=== PATIENT | male | born 1960 | race Caucasian/White ===

== ENCOUNTER 2019-01-03 08:54 | Emergency (ER) | payer BC ==
[2019-01-03] MEDS ORDERED: METOCLOPRAMIDE HCL INJ/PF 10 MG/2 ML SDV IV ONE (09:57)
[2019-01-03] MEDS ORDERED: KETOROLAC TROMETHAMINE INJ/PF 30 MG/1 ML SDV IV ONE (09:57)
[2019-01-03] MEDS ORDERED: NORMAL SALINE 1000 ML 1,000 ML IV ONE (09:58)
[2019-01-03 11:13] LABS: ABSOLUTE LYMPHOCYTES (AUTO) 1.1 10^3/uL (0.5-4.7); ABSOLUTE MONOCYTES (AUTO) 0.7 10^3/uL (0.1-1.4); ABSOLUTE NEUT (AUTO) 9.8 10^3/uL (1.7-8.2); BASOPHILS % (AUTO) 0.1 % (0-2); EOSINOPHILS % (AUTO) 0.4 % (0-6); HEMATOCRIT 44.7 % (37.9-51.0); HEMOGLOBIN 15.3 g/dL (13.5-17.0); LYMPHOCYTES % (AUTO) 9.7 % (13-45); MEAN CORPUSCULAR HGB CONC 34.3 g/dL (32.0-36.0); MEAN CORPUSCULAR VOLUME 87 fl (80-97); MONOCYTES % (AUTO) 5.7 % (3-13); PLATELET COUNT 283 10^3/uL (150-450); RED BLOOD COUNT 5.12 10^6/uL (4.35-5.55); SEGMENTED NEUTROPHILS % (AUTO) 84.1 % (42-78); TOTAL CELLS COUNTED % (AUTO) 100 %; WHITE BLOOD COUNT 11.7 10^3/uL (4.0-10.5)
[2019-01-03 11:34] LABS: ALANINE AMINOTRANSFERASE 32 U/L (21-72); ALBUMIN 4.1 g/dL (3.5-5.0); ALKALINE PHOSPHATASE 69 U/L (38-126); ANION GAP 9 (5-19); ASPARTATE AMINO TRANSFERASE 15 U/L (17-59); BILIRUBIN,DIRECT 0.1 mg/dL (0.0-0.4); BILIRUBIN,TOTAL 0.5 mg/dL (0.2-1.3); BLOOD UREA NITROGEN 9 mg/dL (7-20); CALCIUM 9.2 mg/dL (8.4-10.2); CARBON DIOXIDE 27 mmol/L (22-30); CHLORIDE 104 mmol/L (98-107); GLUCOSE 99 mg/dL (75-110); POTASSIUM 4.3 mmol/L (3.6-5.0); SODIUM 140.1 mmol/L (137-145); TOTAL PROTEIN 6.4 g/dL (6.3-8.2)
[2019-01-03] MEDS ORDERED: CYCLOBENZAPRINE HCL 10 MG TABLET PO ONE (11:50)
--- NOTE | 2019-01-03 11:57 | ER Document Report ---
ED General - General Chief Complaint: Nausea/Vomiting Stated Complaint: VOMITING Time Seen by Provider: 01/03/19 09:45 Notes: Patient is a 58-year-old male presents to the emergency department for generalized headache, tired feeling, nausea, vomiting. Patient states he has had an intermittent headache in the bottom of his neck and into bilateral shoulders intermittently for the last 6 months. Patient states he is going through a lot of stress at work. States he was going to a massage therapist who inevitably was making the headaches a lot better. States yesterday he tried to take a Claritin for an upper respiratory infection states he vomited x1. States he also tried to take a Claritin this morning and again vomited. States he is a little bit nauseated at this time. Patient states he has had a generalized cough and congestion for the last 4 weeks. States he has been attempting to take [id number] medications for this but along with the lower neck and bilateral shoulder headaches he is now having a frontal headache. Patient's denying any fever. Patient states he has no chest pain, no shortness of breath no abdominal pain no dysuria no back pain. Past medical history: None although patient states he has not seen a doctor in over 5 years Medications: None Allergies: None Surgical history: None TRAVEL OUTSIDE OF THE [place] IN LAST 30 DAYS: No - Related Data Allergies/Adverse Reactions: No Known Allergies Allergy (Verified 07/14/13 20:44) Past Medical History - General Information source: Patient, Relative - Social History Smoking Status: Current Every Day Smoker Chew tobacco use (# tins/day): No Frequency of alcohol use: None Drug Abuse: None Family History: Reviewed & Not Pertinent Patient has suicidal ideation: No Patient has homicidal ideation: No - Past Medical History Cardiac Medical History: Reports: Hx Hypercholesterolemia, Hx Hypertension Renal/ Medical History: Reports: Hx Kidney Stones. Denies: Hx Peritoneal Dialysis Musculoskeletal Medical History: Reports Hx Musculoskeletal Trauma Past Surgical History: Reports: Hx Adenoidectomy, Hx Orthopedic Surgery, Hx Tonsillectomy - Immunizations Hx Diphtheria, Pertussis, Tetanus Vaccination: Yes - Review of Systems - Review of Systems Constitutional: See HPI EENT: See HPI Cardiovascular: See HPI Respiratory: See HPI Gastrointestinal: No symptoms reported Genitourinary: No symptoms reported Male Genitourinary: No symptoms reported Musculoskeletal: No symptoms reported Skin: No symptoms reported Hematologic/Lymphatic: See HPI Physical Exam - Vital signs Vitals: Temp Pulse Resp BP Pulse Ox 97.9 F 65 18 143/73 H 96 01/03/19 08:57 01/03/19 08:57 01/03/19 08:57 01/03/19 08:57 01/03/19 08:57 - Notes Notes: GENERAL: Alert, interacts well. No acute distress. HEAD: Normocephalic, atraumatic. Frontal sinus tenderness noted, no maxillary sinus tenderness noted EYES: Pupils equal, round, and reactive to light. Extraocular movements intact. ENT: Oral mucosa moist, tongue midline. Nares patent, no nasal septal hematoma, TM's intact, nonerythematous, nonbulging bilaterally. NECK: Full range of motion. Supple. Trachea midline. No nuchal rigidity noted. Patient has no spinal pain but does have pain bilateral trapezius tension and pain upon palpation. LUNGS: Clear to auscultation bilaterally, no wheezes, rales, or rhonchi. No respiratory distress. HEART: Regular rate and rhythm. No murmur ABDOMEN: Soft, non-tender. Non-distended. Bowel sounds present in all 4 quadrants. EXTREMITIES: Moves all 4 extremities spontaneously. No edema, normal radial and dorsalis pedis pulses bilaterally. No cyanosis. 5 out of 5 strength all 4 extremities BACK: no cervical, thoracic, lumbar midline tenderness. No saddle anesthesia, no rmal distal neurovascular exam. NEUROLOGICAL: Alert and oriented x3. Normal speech. cranial nerves II through XII grossly intact. PSYCH: Normal affect, normal mood. SKIN: Warm, dry, normal turgor. No rashes or lesions noted. Course - Re-evaluation Re-evalutation: 01/03/19 11:54 After treatments in the emergency room patient states "I feel better than I have felt in days." Patient's physical exam and HPI does reveal signs of sinusitis and a tension headache. Discussed use of antibiotics and muscle relaxers with patient at bedside. Patient does have a slight leukocytosis likely due to vomiting, no signs of anemia no signs of electrolyte abnormalities. Patient's vitals are stable and will discharge home. Discussed close follow-up with her primary care provider, phone numbers will be provided in his paperwork. - Vital Signs Vital signs: Temp Pulse Resp BP Pulse Ox 97.9 F 65 18 143/73 H 96 01/03/19 08:57 01/03/19 08:57 01/03/19 08:57 01/03/19 08:57 01/03/19 08:57 - Laboratory Result Diagrams: 01/03/19 10:42 01/03/19 10:42 Laboratory results interpreted by me: 01/03/19 01/03/19 10:42 10:42 WBC 11.7 H Seg Neutrophils % 84.1 H Lymphocytes % 9.7 L Absolute Neutrophils 9.8 H AST 15 L Discharge - Discharge Clinical Impression: Sinusitis Qualifiers: Sinusitis location: frontal Chronicity: acute Recurrence: non-recurrent Qualified Code(s): J01.10 - Acute frontal sinusitis, unspecified Tension headache, chronic Qualifiers: Intractability: not intractable Qualified Code(s): G44.229 - Chronic tension- type headache, not intractable Condition: Stable Disposition: HOME, SELF-CARE Instructions: Tension Headache ([facility]), Sinusitis ([facility]) Additional Instructions: As we discussed you have been seen and treated in the emergency department for your sinusitis and what appears to be a tension headache. Please take antibiotics as prescribed. Please try [id number] nasal sprays for nasal congestion and pmig-[id number]-[id number] antihistamines like Zyrtec or Tona. Please also take muscle relaxers as prescribed. Please know that they may make you tired so be careful operating machinery or going to work. Please continue to take [id number] Tylenol Motrin for generalized pain. Phone numbers for primary care provider will be provided in this paperwork. Please follow-up in the next 24-48 hours. Please return to the emergency room for any other concerning symptoms. Prescriptions: Amox Tr/Potassium Clavulanate [Augmentin 875-125 Tablet] 1 tab PO BID 10 Days tablet Cyclobenzaprine HCl [Flexeril 10 mg Tablet] 10 mg PO TIDP PRN #15 tab PRN Reason: Forms: Return to Work Referrals: JO ANN BURTON MD [ACTIVE STAFF] - Follow up as needed
[2019-01-03 13:03] VITALS: BP 130/73
== END 2019-01-03 13:03 | disposition home or self-care (01) ==
LOC: ER 08:54
DX: J01.10 Acute frontal sinusitis, unspecified (principal); G44.229 Chronic tension-type headache, not intractable; R11.2 Nausea with vomiting, unspecified; M54.2 Cervicalgia; M25.511 Pain in right shoulder; M25.512 Pain in left shoulder; Z79.899 Other long term (current) drug therapy; F17.200 Nicotine dependence, unspecified, uncomplicated; I10 Essential (primary) hypertension
CPT/HCPCS: 99283; 96361; 96374; 96375; 36415; 85025; 80053; J1885; J2765; J7030